=== PATIENT | female | born 1940 | race Caucasian/White ===

== ENCOUNTER 2022-04-05 05:26 | Inpatient (IN) | payer MEDICARE, OTHER ==
[2022-04-05 06:29] LABS: #Eosinphils 0.1 10x3/uL (0.0-0.5); #Monocytes 0.5 10x3/uL (0.0-1.1); #Neutrophils 7.3 10x3/uL (1.5-8.4); %Basophils 0.3 % (0.0-2.0); %Eosinophils 0.9 % (0.0-6.0); %Lymphocytes 10.5 % (18.0-47.0); %Monocytes 5.4 % (0.0-10.0); %Neutrophils 82.6 % (40.0-75.0); Hemoglobin 10.6 g/dL (12.0-15.5); Mean Corpuscular HGB CONC 31.4 g/dL (32.0-36.0); Mean Corpuscular Volume 92.3 fl (81.6-98.3); Mean Platelet Volume 8.8 fl (7.4-10.4); Platelet Count 202 10x3/uL (150-450); RBC Distribution Width 13.5 % (11.5-14.5); Red Blood Cell (RBC) Count 3.66 10x6/uL (3.90-5.03); White Blood Cell (WBC) Count 8.8 10x3/uL (3.5-10.5)
[2022-04-05 06:41] LABS: ALT (SGPT) 20 U/L (8-55); AST (SGOT) 25 U/L (5-34); Albumin 3.9 g/dL (3.4-4.8); Alkaline Phosphatase 87 U/L (40-110); Anion Gap 15 mmol/L (10-20); BUN (Urea Nitrogen) 29 mg/dL (9.8-20.1); Bilirubin, Total 0.5 mg/dL (0.2-1.2); Calc. Creatinine Clearance 0 mL/min (70-130); Calcium 9.4 mg/dL (7.8-10.44); Carbon Dioxide 20 mmol/L (23-31); Chloride 102 mmol/L (98-107); Estimated GFR 65; Globulin 3.2 g/dL (2.4-3.5); Glucose 145 mg/dL (83-110); Potassium 5.8 mmol/L (3.5-5.1); Protein, Total 7.1 g/dL (5.8-8.1); Sodium 131 mmol/L (136-145)
[2022-04-05] MEDS ORDERED: Furosemide 40 MG/4 ML VIAL ONE ×2 (08:50→10:58)
[2022-04-05] MEDS ORDERED: Nitroglycerin 2% Ointment 1 INCH/1 GM Packet ONE (08:50)
[2022-04-05] MEDS ORDERED: Nitroglycerin 0.4 MG TAB 1 EACH ONE (08:50)
[2022-04-05 09:21] LABS: Actual Bicarbonate (HCO3v) 12 mEq/L (22-28); Base Excess -16.4 mEq/L (-2.0 to +3.0); Calcium, Ionized (venous) 0.74 mmol/L (1.16-1.32); Chloride (VBG) 124 mmol/L (98-106); Puncture Site Other Site; RapidComm Collect By LAB TECH
[2022-04-05] MEDS ORDERED: Insulin Regular 300 UNITS/3 ML VIAL SC PRN (10:18)
[2022-04-05] MEDS ORDERED: Dextrose 50% Abboject 50 ML SYRINGE SLOW IVP PRN ×3 (10:18→16:39)
[2022-04-05] MEDS ORDERED: Dextrose 5% in Water 1,000 ML IV PRN (10:18)
[2022-04-05 11:16] LABS: Magnesium 2.1 mg/dL (1.6-2.6); Phosphorus 3.3 mg/dL (2.3-4.7)
[2022-04-05] MEDS ORDERED: Iopamidol 370 76% 100 ML VIAL ONE (11:28)
[2022-04-05 12:26] LABS: Anion Gap 16 mmol/L (10-20); BUN (Urea Nitrogen) 32 mg/dL (9.8-20.1); Calc. Creatinine Clearance 0 mL/min (70-130); Calcium 9.4 mg/dL (7.8-10.44); Carbon Dioxide 18 mmol/L (23-31); Chloride 100 mmol/L (98-107); Estimated GFR 58; Glucose 170 mg/dL (83-110); Sodium 128 mmol/L (136-145)
[2022-04-05] MEDS ORDERED: Furosemide 40 MG/4 ML VIAL SLOW IVP SCH ×2 (14:00→21:00)
[2022-04-05 14:40] LABS: Free T4 (Free Thyroxine) 1.05 ng/dL (0.70-1.48)
[2022-04-05 14:43] LABS: CKMB 4.6 ng/mL (0-6.6)
[2022-04-05 14:52] LABS: Actual Bicarbonate (HCO3a) 24.5 mEq/L (22-28); CO2 Tension 49.2 mmHg (35.0-45.0); Calcium, Ionized (arterial) 1.23 mmol/L (1.12-1.30); Carboxyhemoglobin (COHb) 0.2 gm% (0.0-3.0); Hemoglobin (Hb) 11.3 g/dL (12.0-16.0); O2 Tension (PaO2), arterial 109.7 mmHg (> 60.0); Potassium - ABG Lab 5.5 mmol/L (3.70-5.30); Puncture Site LBA; pH, Arterial 7.32 (7.35-7.45)
[2022-04-05] MEDS ORDERED: Calcium Gluc 4.6 MEQ/10 ML (100 MG/ML) SLOW IVP ONE (15:26)
[2022-04-05 15:27] LABS: Actual Bicarbonate (HCO3a) 22.8 mEq/L (22-28); Base Excess (BEa) -2.5 mEq/L (-2.0 to +3.0); CO2 Tension 41.5 mmHg (35.0-45.0); Calcium, Ionized (arterial) 1.08 mmol/L (1.12-1.30); Carboxyhemoglobin (COHb) 2.6 gm% (0.0-3.0); Hemoglobin (Hb) 12.2 g/dL (12.0-16.0); O2 Tension (PaO2), arterial 61.9 mmHg (> 60.0); Potassium - ABG Lab 6.1 mmol/L (3.70-5.30); Puncture Site Other Site; RapidComm Collect By LAB TECH; pH, Arterial 7.36 (7.35-7.45)
[2022-04-05 15:30] LABS: ALV-art Gradient 171.425 mmHg (0-20)
[2022-04-05] MEDS ORDERED: Insulin Regular 300 UNITS/3 ML VIAL IVP SCH ×2 (15:30→16:45)
[2022-04-05 15:49] LABS: Anion Gap 14 mmol/L (10-20); BUN (Urea Nitrogen) 33 mg/dL (9.8-20.1); Calc. Creatinine Clearance 65 mL/min (70-130); Calcium 9.5 mg/dL (7.8-10.44); Carbon Dioxide 21 mmol/L (23-31); Chloride 100 mmol/L (98-107); Estimated GFR 58; Glucose 150 mg/dL (83-110); Magnesium 2.1 mg/dL (1.6-2.6); Potassium 6.3 mmol/L (3.5-5.1); Sodium 129 mmol/L (136-145)
[2022-04-05] MEDS ORDERED: Calcium Gluc 4.6 MEQ/10 ML (100 MG/ML) SLOW IVP SCH (16:38)
[2022-04-05 17:49] LABS: Potassium 5.4 mmol/L (3.5-5.1)
[2022-04-05 18:30] LABS: SARS-CoV-2 NAA Rapid Test Not Detected (NotDetected)
[2022-04-05] MEDS ORDERED: Melatonin 3 MG TAB PO PRN (19:06)
[2022-04-05] MEDS: Aspirin 81 mg Enteric Coated Tablet PO SCH (20:35)
[2022-04-05] MEDS: Atorvastatin Calcium 40 MG TAB PO SCH (20:36)
[2022-04-05] MEDS: Heparin 5,000 UNITS/ML VIAL SC SCH (20:36)
[2022-04-05 20:51] LABS: Anion Gap 14 mmol/L (10-20); BUN (Urea Nitrogen) 33 mg/dL (9.8-20.1); Calc. Creatinine Clearance 60 mL/min (70-130); Calcium 9.3 mg/dL (7.8-10.44); Carbon Dioxide 23 mmol/L (23-31); Chloride 97 mmol/L (98-107); Estimated GFR 54; Glucose 181 mg/dL (83-110); Sodium 129 mmol/L (136-145)
[2022-04-05 21:24] LABS: CKMB 4.8 ng/mL (0-6.6)
[2022-04-06 02:58] LABS: #Monocytes 0.7 10x3/uL (0.0-1.1); #Neutrophils 7.8 10x3/uL (1.5-8.4); %Basophils 0.1 % (0.0-2.0); %Lymphocytes 6.5 % (18.0-47.0); %Monocytes 7.7 % (0.0-10.0); %Neutrophils 85.3 % (40.0-75.0); Hemoglobin 9.7 g/dL (12.0-15.5); Mean Corpuscular HGB CONC 32.6 g/dL (32.0-36.0); Mean Corpuscular Hemoglobin 29.3 pg (27.0-33.0); Mean Platelet Volume 9.2 fl (7.4-10.4); Platelet Count 205 10x3/uL (150-450); RBC Distribution Width 13.3 % (11.5-14.5); Red Blood Cell (RBC) Count 3.31 10x6/uL (3.90-5.03); White Blood Cell (WBC) Count 9.1 10x3/uL (3.5-10.5)
[2022-04-06 03:23] LABS: ALT (SGPT) 17 U/L (8-55); AST (SGOT) 27 U/L (5-34); Albumin 3.4 g/dL (3.4-4.8); Alkaline Phosphatase 77 U/L (40-110); Anion Gap 14 mmol/L (10-20); BUN (Urea Nitrogen) 36 mg/dL (9.8-20.1); Bilirubin, Total 0.4 mg/dL (0.2-1.2); Calc. Creatinine Clearance 56 mL/min (70-130); Calcium 9.3 mg/dL (7.8-10.44); Carbon Dioxide 23 mmol/L (23-31); Chloride 100 mmol/L (98-107); Estimated GFR 49; Globulin 2.8 g/dL (2.4-3.5); Glucose 167 mg/dL (83-110); Potassium 5.2 mmol/L (3.5-5.1); Protein, Total 6.2 g/dL (5.8-8.1); Sodium 132 mmol/L (136-145)
[2022-04-06] MEDS: Furosemide 40 MG/4 ML VIAL SLOW IVP SCH ×2 (06:07→14:10)
[2022-04-06 08:51] LABS: CKMB 3.3 ng/mL (0-6.6)
[2022-04-06] MEDS: Heparin 5,000 UNITS/ML VIAL SC SCH ×2 (08:54→20:27)
[2022-04-06] MEDS: Stress 600 With Zinc 1 TAB PO SCH (08:54)
[2022-04-06] MEDS: Methimazole 5 MG TAB PO SCH (09:33)
[2022-04-06] MEDS: Nystatin Powder 15 GM BOT TOP PRN ×2 (14:17→20:43)
[2022-04-06] MEDS: Aspirin 81 mg Enteric Coated Tablet PO SCH (20:27)
[2022-04-06] MEDS: Atorvastatin Calcium 40 MG TAB PO SCH (20:28)
[2022-04-06] MEDS ORDERED: Carvedilol 6.25 MG TAB PO SCH (21:00)
[2022-04-07 03:55] LABS: #Basophils 0.1 10x3/uL (0.0-0.2); #Eosinphils 0.1 10x3/uL (0.0-0.5); #Monocytes 0.8 10x3/uL (0.0-1.1); #Neutrophils 6.4 10x3/uL (1.5-8.4); %Basophils 0.5 % (0.0-2.0); %Eosinophils 1.5 % (0.0-6.0); %Lymphocytes 18.1 % (18.0-47.0); %Monocytes 9.2 % (0.0-10.0); %Neutrophils 70.5 % (40.0-75.0); Hemoglobin 9.9 g/dL (12.0-15.5); Mean Corpuscular HGB CONC 32.6 g/dL (32.0-36.0); Mean Corpuscular Hemoglobin 29.3 pg (27.0-33.0); Mean Corpuscular Volume 89.9 fl (81.6-98.3); Platelet Count 221 10x3/uL (150-450); RBC Distribution Width 13.5 % (11.5-14.5); Red Blood Cell (RBC) Count 3.38 10x6/uL (3.90-5.03); White Blood Cell (WBC) Count 9.1 10x3/uL (3.5-10.5)
[2022-04-07 04:10] LABS: Anion Gap 12 mmol/L (10-20); BUN (Urea Nitrogen) 42 mg/dL (9.8-20.1); Calc. Creatinine Clearance 61 mL/min (70-130); Calcium 9.1 mg/dL (7.8-10.44); Carbon Dioxide 29 mmol/L (23-31); Chloride 99 mmol/L (98-107); Estimated GFR 53; Glucose 100 mg/dL (83-110); Potassium 4.5 mmol/L (3.5-5.1); Sodium 135 mmol/L (136-145)
[2022-04-07] MEDS: Furosemide 40 MG/4 ML VIAL SLOW IVP SCH (05:49)
[2022-04-07] MEDS: Hydroxychloroquine Sulfate 200 MG TAB PO SCH (08:07)
[2022-04-07] MEDS: Carvedilol 6.25 MG TAB PO SCH ×2 (08:07→21:32)
[2022-04-07] MEDS: Stress 600 With Zinc 1 TAB PO SCH (08:08)
[2022-04-07] MEDS: Methimazole 5 MG TAB PO SCH (08:09)
[2022-04-07] MEDS: Heparin 5,000 UNITS/ML VIAL SC SCH ×2 (08:09→21:32)
[2022-04-07] MEDS ORDERED: Losartan Potassium 50 MG TAB PO SCH (09:00)
[2022-04-07] MEDS: Lantus 1000 UNITS/10 ML VIAL SC SCH (09:12)
[2022-04-07] MEDS ORDERED: Sodium Bicarbonate 2.5 MEQ/5 ML VIAL ONE (13:07)
[2022-04-07] MEDS: HYDROcodone/Acetaminophen 5/325 mg Tablet PO PRN (16:05)
[2022-04-07] MEDS ORDERED: Amlodipine 5 MG TAB PO SCH (17:00)
[2022-04-07] MEDS: Aspirin 81 mg Enteric Coated Tablet PO SCH (20:37)
[2022-04-07] MEDS: Atorvastatin Calcium 40 MG TAB PO SCH (21:32)
[2022-04-08] MEDS: HYDROcodone/Acetaminophen 5/325 mg Tablet PO PRN ×3 (02:42→18:10)
[2022-04-08] MEDS: Heparin 5,000 UNITS/ML VIAL SC SCH ×2 (08:22→20:05)
[2022-04-08] MEDS: Carvedilol 6.25 MG TAB PO SCH ×2 (08:23→20:04)
[2022-04-08] MEDS: Stress 600 With Zinc 1 TAB PO SCH (08:23)
[2022-04-08] MEDS: Methimazole 5 MG TAB PO SCH (08:23)
[2022-04-08] MEDS: Hydroxychloroquine Sulfate 200 MG TAB PO SCH (08:23)
[2022-04-08] MEDS: Lantus 1000 UNITS/10 ML VIAL SC SCH (08:24)
[2022-04-08 08:47] LABS: Hemoglobin 10.8 g/dL (12.0-15.5); Mean Corpuscular HGB CONC 31.6 g/dL (32.0-36.0); Mean Corpuscular Hemoglobin 28.7 pg (27.0-33.0); Mean Platelet Volume 8.7 fl (7.4-10.4); Platelet Count 215 10x3/uL (150-450); RBC Distribution Width 13.2 % (11.5-14.5); Red Blood Cell (RBC) Count 3.76 10x6/uL (3.90-5.03); White Blood Cell (WBC) Count 8.6 10x3/uL (3.5-10.5)
[2022-04-08 08:56] LABS: Anion Gap 12 mmol/L (10-20); BUN (Urea Nitrogen) 34 mg/dL (9.8-20.1); Calc. Creatinine Clearance 63 mL/min (70-130); Calcium 8.9 mg/dL (7.8-10.44); Carbon Dioxide 29 mmol/L (23-31); Chloride 97 mmol/L (98-107); Estimated GFR 57; Glucose 116 mg/dL (83-110); Sodium 134 mmol/L (136-145)
[2022-04-08] MEDS ORDERED: Furosemide 40 MG/4 ML VIAL SLOW IVP SCH (09:00)
[2022-04-08] MEDS: Senokot S 8.6-50 MG TAB PO PRN (14:09)
[2022-04-08] MEDS: Aspirin 81 mg Enteric Coated Tablet PO SCH (20:04)
[2022-04-08] MEDS: Atorvastatin Calcium 40 MG TAB PO SCH (20:05)
[2022-04-09] MEDS: HYDROcodone/Acetaminophen 5/325 mg Tablet PO PRN ×3 (02:23→21:14)
[2022-04-09] MEDS ORDERED: Furosemide 40 MG TAB PO SCH (07:30)
[2022-04-09] MEDS: Methimazole 5 MG TAB PO SCH (07:48)
[2022-04-09] MEDS: Stress 600 With Zinc 1 TAB PO SCH (07:49)
[2022-04-09] MEDS: Hydroxychloroquine Sulfate 200 MG TAB PO SCH (07:49)
[2022-04-09] MEDS: Lantus 1000 UNITS/10 ML VIAL SC SCH (07:50)
[2022-04-09] MEDS: Heparin 5,000 UNITS/ML VIAL SC SCH (07:50)
[2022-04-09] MEDS: Carvedilol 6.25 MG TAB PO SCH ×2 (07:55→21:15)
[2022-04-09 09:17] LABS: Anion Gap 13 mmol/L (10-20); BUN (Urea Nitrogen) 44 mg/dL (9.8-20.1); Calc. Creatinine Clearance 52 mL/min (70-130); Calcium 8.8 mg/dL (7.8-10.44); Carbon Dioxide 28 mmol/L (23-31); Chloride 94 mmol/L (98-107); Estimated GFR 43; Glucose 117 mg/dL (83-110); Potassium 3.8 mmol/L (3.5-5.1); Sodium 131 mmol/L (136-145)
[2022-04-09] MEDS: Aspirin 81 mg Enteric Coated Tablet PO SCH (21:15)
[2022-04-09] MEDS: Atorvastatin Calcium 40 MG TAB PO SCH (21:15)
[2022-04-10 06:04] LABS: #Eosinphils 0.4 10x3/uL (0.0-0.5); #Monocytes 0.9 10x3/uL (0.0-1.1); #Neutrophils 6.6 10x3/uL (1.5-8.4); %Basophils 0.3 % (0.0-2.0); %Lymphocytes 12.1 % (18.0-47.0); %Monocytes 10.3 % (0.0-10.0); %Neutrophils 73.1 % (40.0-75.0); Hemoglobin 10.9 g/dL (12.0-15.5); Mean Corpuscular HGB CONC 33.4 g/dL (32.0-36.0); Mean Corpuscular Hemoglobin 29.5 pg (27.0-33.0); Mean Corpuscular Volume 88.1 fl (81.6-98.3); Mean Platelet Volume 8.9 fl (7.4-10.4); Platelet Count 216 10x3/uL (150-450)
[2022-04-10 06:30] LABS: PTT 28.6 sec (22.0-33.0); Prothrombin Time 11.1 sec (9.5-12.1)
[2022-04-10 06:32] LABS: Anion Gap 16 mmol/L (10-20); BUN (Urea Nitrogen) 43 mg/dL (9.8-20.1); Calc. Creatinine Clearance 52 mL/min (70-130); Calcium 8.8 mg/dL (7.8-10.44); Carbon Dioxide 23 mmol/L (23-31); Chloride 97 mmol/L (98-107); Estimated GFR 44; Glucose 119 mg/dL (83-110); Sodium 132 mmol/L (136-145)
[2022-04-10] MEDS ORDERED: CEFAZOLIN 1 GM VIAL ONE ×2 (06:55→08:54)
[2022-04-10] MEDS ORDERED: Gentamicin 80 MG/2 ML VIAL ONE (06:55)
[2022-04-10] MEDS ORDERED: Vancomycin 1.5 GRAM/300 ML BAG IVPB SCH (07:00)
[2022-04-10] MEDS ORDERED: Lidocaine 1% 20 ML MDV ONE (07:44)
[2022-04-10] MEDS ORDERED: Ketamine 50 MG/ML (10ML VIAL) ONE (08:35)
[2022-04-10] MEDS ORDERED: Lidocaine 2% MPF 10 ML AMP (For Epidural Use) ONE (08:36)
[2022-04-10] MEDS ORDERED: Propofol 1,000 MG/100 ML VIAL IV ONE (08:36)
[2022-04-10] MEDS ORDERED: ePHEDrine Sulfate 50 MG/10 ML VIAL ONE (08:42)
[2022-04-10] MEDS ORDERED: PHENYLEPHRINE-NS 100 MCG/ML 10 ML SYRINGE ONE (08:43)
[2022-04-10] MEDS ORDERED: Ondansetron PF 4 MG/2 ML Vial ONE (08:59)
[2022-04-10] MEDS: Carvedilol 6.25 MG TAB PO SCH ×2 (11:01→21:09)
[2022-04-10] MEDS: Hydroxychloroquine Sulfate 200 MG TAB PO SCH (11:02)
[2022-04-10] MEDS: Stress 600 With Zinc 1 TAB PO SCH (11:02)
[2022-04-10] MEDS: Lantus 1000 UNITS/10 ML VIAL SC SCH (11:02)
[2022-04-10] MEDS: Methimazole 5 MG TAB PO SCH (11:02)
[2022-04-10] MEDS: Senokot S 8.6-50 MG TAB PO PRN ×2 (11:29→22:10)
[2022-04-10] MEDS ORDERED: Iopamidol 300 61% 50 ML VIAL FS ONE (13:35)
[2022-04-10] MEDS: HYDROcodone/Acetaminophen 5/325 mg Tablet PO PRN ×2 (14:13→21:07)
[2022-04-10] MEDS: Aspirin 81 mg Enteric Coated Tablet PO SCH (21:06)
[2022-04-10] MEDS: Atorvastatin Calcium 40 MG TAB PO SCH (21:09)
[2022-04-11 04:23] LABS: #Neutrophils 5.2 10x3/uL (1.5-8.4); %Basophils 0.5 % (0.0-2.0); %Eosinophils 6.5 % (0.0-6.0); %Lymphocytes 16.2 % (18.0-47.0); %Monocytes 10.8 % (0.0-10.0); %Neutrophils 65.6 % (40.0-75.0); Mean Corpuscular HGB CONC 32.8 g/dL (32.0-36.0); Mean Corpuscular Hemoglobin 29.1 pg (27.0-33.0); Mean Corpuscular Volume 88.7 fl (81.6-98.3); Mean Platelet Volume 8.8 fl (7.4-10.4); Platelet Count 214 10x3/uL (150-450); RBC Distribution Width 13.2 % (11.5-14.5); Red Blood Cell (RBC) Count 3.44 10x6/uL (3.90-5.03)
[2022-04-11 04:24] LABS: #Eosinphils 0.5 10x3/uL (0.0-0.5); #Monocytes 0.9 10x3/uL (0.0-1.1)
[2022-04-11 04:59] LABS: Anion Gap 15 mmol/L (10-20); BUN (Urea Nitrogen) 57 mg/dL (9.8-20.1); Calc. Creatinine Clearance 47 mL/min (70-130); Calcium 8.5 mg/dL (7.8-10.44); Carbon Dioxide 23 mmol/L (23-31); Chloride 98 mmol/L (98-107); Estimated GFR 39; Glucose 137 mg/dL (83-110); Magnesium 2.2 mg/dL (1.6-2.6); Potassium 4.4 mmol/L (3.5-5.1); Sodium 132 mmol/L (136-145)
[2022-04-11] MEDS ORDERED: Sodium Chloride 0.9% 1,000 ML IV SCH (07:30)
[2022-04-11] MEDS: Methimazole 5 MG TAB PO SCH (08:33)
[2022-04-11] MEDS: Hydroxychloroquine Sulfate 200 MG TAB PO SCH (08:33)
[2022-04-11] MEDS: Stress 600 With Zinc 1 TAB PO SCH (08:34)
[2022-04-11] MEDS: Lantus 1000 UNITS/10 ML VIAL SC SCH (08:34)
[2022-04-11] MEDS: Carvedilol 6.25 MG TAB PO SCH ×2 (08:35→20:52)
[2022-04-11] MEDS: Insulin Regular 300 UNITS/3 ML VIAL SC PRN (11:56)
[2022-04-11] MEDS: diphenhydrAMINE 30 GM TUBE TOP PRN (20:50)
[2022-04-11] MEDS: Aspirin 81 mg Enteric Coated Tablet PO SCH (20:52)
[2022-04-11] MEDS: Atorvastatin Calcium 40 MG TAB PO SCH (20:52)
[2022-04-11] MEDS: Heparin 5,000 UNITS/ML VIAL SC SCH (20:53)
[2022-04-11] MEDS: Acetaminophen 325 MG TAB PO PRN (22:13)
[2022-04-11] MEDS: Senokot S 8.6-50 MG TAB PO PRN (22:14)
[2022-04-12] MEDS ORDERED: Ondansetron PF 4 MG/2 ML Vial IVP SCH (00:45)
[2022-04-12 01:11] LABS: SARS-CoV-2 NAA Rapid Test Not Detected (NotDetected)
[2022-04-12 01:45] LABS: #Eosinphils 0.5 10x3/uL (0.0-0.5); #Monocytes 0.9 10x3/uL (0.0-1.1); #Neutrophils 5.3 10x3/uL (1.5-8.4); %Basophils 0.5 % (0.0-2.0); %Eosinophils 6.5 % (0.0-6.0); %Lymphocytes 14.5 % (18.0-47.0); %Monocytes 10.8 % (0.0-10.0); %Neutrophils 67.3 % (40.0-75.0); Hemoglobin 9.8 g/dL (12.0-15.5); Mean Corpuscular HGB CONC 33.1 g/dL (32.0-36.0); Mean Corpuscular Hemoglobin 29.6 pg (27.0-33.0); Mean Corpuscular Volume 89.4 fl (81.6-98.3); Mean Platelet Volume 8.8 fl (7.4-10.4); Platelet Count 215 10x3/uL (150-450); RBC Distribution Width 12.9 % (11.5-14.5); Red Blood Cell (RBC) Count 3.31 10x6/uL (3.90-5.03); White Blood Cell (WBC) Count 7.9 10x3/uL (3.5-10.5)
[2022-04-12 01:57] LABS: Anion Gap 14 mmol/L (10-20); BUN (Urea Nitrogen) 57 mg/dL (9.8-20.1); Calc. Creatinine Clearance 56 mL/min (70-130); Calcium 8.4 mg/dL (7.8-10.44); Carbon Dioxide 21 mmol/L (23-31); Chloride 99 mmol/L (98-107); Estimated GFR 49; Glucose 121 mg/dL (83-110); Magnesium 2.2 mg/dL (1.6-2.6); Potassium 4.6 mmol/L (3.5-5.1); Sodium 129 mmol/L (136-145)
[2022-04-12 02:01] LABS: Troponin I 0.074 ng/mL (< 0.028)
[2022-04-12] MEDS: Lantus 1000 UNITS/10 ML VIAL SC SCH (08:42)
[2022-04-12] MEDS: Carvedilol 6.25 MG TAB PO SCH ×2 (08:43→21:46)
[2022-04-12] MEDS: Heparin 5,000 UNITS/ML VIAL SC SCH ×2 (08:43→21:46)
[2022-04-12] MEDS: Methimazole 5 MG TAB PO SCH (08:44)
[2022-04-12] MEDS: Hydroxychloroquine Sulfate 200 MG TAB PO SCH (08:44)
[2022-04-12] MEDS: Stress 600 With Zinc 1 TAB PO SCH (08:44)
[2022-04-12] MEDS: Nystatin Powder 15 GM BOT TOP PRN (11:02)
[2022-04-12] MEDS: diphenhydrAMINE 30 GM TUBE TOP PRN (11:05)
[2022-04-12] MEDS: Insulin Regular 300 UNITS/3 ML VIAL SC PRN (11:54)
[2022-04-12] MEDS ORDERED: Ondansetron PF 4 MG/2 ML Vial IVP PRN (14:09)
[2022-04-12] MEDS ORDERED: Promethazine HCl 12.5 MG in Sodium Chloride 0.9% 50 ML IVPB PRN (15:15)
[2022-04-12] MEDS: Scopolamine 1.5 mg/72 hour Patch TD SCH (15:33)
[2022-04-12] MEDS: Dextrose 50% Abboject 50 ML SYRINGE SLOW IVP PRN ×2 (18:40→20:17)
[2022-04-12] MEDS: Aspirin 81 mg Enteric Coated Tablet PO SCH (21:45)
[2022-04-12] MEDS: Atorvastatin Calcium 40 MG TAB PO SCH (21:46)
[2022-04-12] MEDS: Acetaminophen 325 MG TAB PO PRN (21:47)
[2022-04-13 03:59] LABS: #Eosinphils 0.4 10x3/uL (0.0-0.5); #Monocytes 0.7 10x3/uL (0.0-1.1); #Neutrophils 8.7 10x3/uL (1.5-8.4); %Basophils 0.3 % (0.0-2.0); %Eosinophils 3.9 % (0.0-6.0); %Lymphocytes 9.2 % (18.0-47.0); %Monocytes 6.8 % (0.0-10.0); %Neutrophils 79.4 % (40.0-75.0); Hemoglobin 10.2 g/dL (12.0-15.5); Mean Corpuscular HGB CONC 33.2 g/dL (32.0-36.0); Mean Corpuscular Hemoglobin 29.7 pg (27.0-33.0); Mean Corpuscular Volume 89.2 fl (81.6-98.3); Mean Platelet Volume 8.6 fl (7.4-10.4); Platelet Count 229 10x3/uL (150-450); RBC Distribution Width 13.2 % (11.5-14.5); Red Blood Cell (RBC) Count 3.44 10x6/uL (3.90-5.03); White Blood Cell (WBC) Count 10.9 10x3/uL (3.5-10.5)
[2022-04-13 04:10] LABS: Anion Gap 13 mmol/L (10-20); BUN (Urea Nitrogen) 53 mg/dL (9.8-20.1); Calc. Creatinine Clearance 49 mL/min (70-130); Calcium 8.7 mg/dL (7.8-10.44); Carbon Dioxide 21 mmol/L (23-31); Chloride 101 mmol/L (98-107); Estimated GFR 41; Glucose 128 mg/dL (83-110); Potassium 4.5 mmol/L (3.5-5.1); Sodium 130 mmol/L (136-145)
[2022-04-13] MEDS: Heparin 5,000 UNITS/ML VIAL SC SCH (08:34)
[2022-04-13] MEDS: Methimazole 5 MG TAB PO SCH (08:34)
[2022-04-13] MEDS: Carvedilol 6.25 MG TAB PO SCH (08:34)
[2022-04-13] MEDS: Hydroxychloroquine Sulfate 200 MG TAB PO SCH (08:34)
[2022-04-13] MEDS: Stress 600 With Zinc 1 TAB PO SCH (08:34)
[2022-04-13] MEDS: Lantus 1000 UNITS/10 ML VIAL SC SCH (08:35)
[2022-04-13] MEDS: Albumin 25% 25 GM/100 ML BOT IVPB SCH (15:55)
[2022-04-13] MEDS ORDERED: Furosemide 20 MG/2 ML VIAL SLOW IVP SCH (17:00)
[2022-04-13] MEDS: Atorvastatin Calcium 40 MG TAB PO SCH (21:49)
[2022-04-13] MEDS: Aspirin 81 mg Enteric Coated Tablet PO SCH (21:49)
[2022-04-13] MEDS: Carvedilol 3.125 MG TAB PO SCH (21:49)
[2022-04-14] MEDS ORDERED: diphenhydrAMINE 50 MG/ML VIAL IVP SCH (04:15)
[2022-04-14 05:02] LABS: #Eosinphils 0.6 10x3/uL (0.0-0.5); #Monocytes 0.7 10x3/uL (0.0-1.1); #Neutrophils 4.9 10x3/uL (1.5-8.4); %Basophils 0.1 % (0.0-2.0); %Eosinophils 8.1 % (0.0-6.0); %Lymphocytes 16.2 % (18.0-47.0); %Monocytes 9.5 % (0.0-10.0); %Neutrophils 65.6 % (40.0-75.0); Hemoglobin 10.1 g/dL (12.0-15.5); Mean Corpuscular HGB CONC 33.7 g/dL (32.0-36.0); Mean Platelet Volume 9.2 fl (7.4-10.4); Platelet Count 230 10x3/uL (150-450); Red Blood Cell (RBC) Count 3.37 10x6/uL (3.90-5.03); White Blood Cell (WBC) Count 7.5 10x3/uL (3.5-10.5)
[2022-04-14 05:04] LABS: Anion Gap 15 mmol/L (10-20); BUN (Urea Nitrogen) 49 mg/dL (9.8-20.1); Calc. Creatinine Clearance 57 mL/min (70-130); Calcium 8.7 mg/dL (7.8-10.44); Carbon Dioxide 21 mmol/L (23-31); Chloride 98 mmol/L (98-107); Estimated GFR 49; Glucose 64 mg/dL (83-110); Potassium 4.5 mmol/L (3.5-5.1); Sodium 129 mmol/L (136-145)
[2022-04-14] MEDS: Dextrose 50% Abboject 50 ML SYRINGE SLOW IVP PRN (05:14)
[2022-04-14] MEDS ORDERED: Gentamicin 80 MG/2 ML VIAL ONE (06:47)
[2022-04-14] MEDS ORDERED: CEFAZOLIN 1 GM VIAL ONE (06:47)
[2022-04-14] MEDS ORDERED: Lidocaine 1% 20 ML MDV ONE (06:47)
[2022-04-14] MEDS ORDERED: Vancomycin 1.5 GRAM/300 ML BAG IVPB SCH (07:00)
[2022-04-14] MEDS ORDERED: PROPOFOL 200 MG/20 ML VIAL ONE (09:00)
[2022-04-14] MEDS ORDERED: Ondansetron PF 4 MG/2 ML Vial ONE (09:00)
[2022-04-14] MEDS ORDERED: Lidocaine 1% (PF) 30 ML VIAL ONE (09:00)
[2022-04-14] MEDS ORDERED: Fentanyl 100 MCG/2 ML VIAL ONE (09:01)
[2022-04-14] MEDS ORDERED: NOREPINEPHRINE 8 MG/250 ML-D5W 250 ML ONE (09:08)
[2022-04-14] MEDS ORDERED: Iopamidol 300 61% 50 ML VIAL FS ONE (12:28)
[2022-04-14] MEDS: diphenhydrAMINE 25 MG CAP PO PRN (13:34)
[2022-04-14] MEDS: Methimazole 5 MG TAB PO SCH (15:15)
[2022-04-14] MEDS: Hydroxychloroquine Sulfate 200 MG TAB PO SCH (15:15)
[2022-04-14] MEDS: Carvedilol 3.125 MG TAB PO SCH ×2 (15:15→20:44)
[2022-04-14] MEDS: Lantus 1000 UNITS/10 ML VIAL SC SCH (15:15)
[2022-04-14] MEDS: Stress 600 With Zinc 1 TAB PO SCH (15:16)
[2022-04-14] MEDS: Acetaminophen 325 MG TAB PO PRN (16:12)
[2022-04-14] MEDS: Albumin 25% 25 GM/100 ML BOT IVPB SCH (17:12)
[2022-04-14] MEDS: Atorvastatin Calcium 40 MG TAB PO SCH (20:43)
[2022-04-14] MEDS: Aspirin 81 mg Enteric Coated Tablet PO SCH (20:43)
[2022-04-15 04:45] LABS: #Eosinphils 0.6 10x3/uL (0.0-0.5); #Monocytes 0.8 10x3/uL (0.0-1.1); %Basophils 0.2 % (0.0-2.0); %Eosinophils 7.3 % (0.0-6.0); %Lymphocytes 13.3 % (18.0-47.0); %Monocytes 8.8 % (0.0-10.0); %Neutrophils 69.8 % (40.0-75.0); Mean Corpuscular HGB CONC 32.3 g/dL (32.0-36.0); Mean Corpuscular Hemoglobin 29.1 pg (27.0-33.0); Mean Corpuscular Volume 90.1 fl (81.6-98.3); Platelet Count 223 10x3/uL (150-450); Red Blood Cell (RBC) Count 3.44 10x6/uL (3.90-5.03); White Blood Cell (WBC) Count 8.5 10x3/uL (3.5-10.5)
[2022-04-15 05:05] LABS: Anion Gap 14 mmol/L (10-20); BUN (Urea Nitrogen) 49 mg/dL (9.8-20.1); Calc. Creatinine Clearance 57 mL/min (70-130); Calcium 8.5 mg/dL (7.8-10.44); Carbon Dioxide 20 mmol/L (23-31); Chloride 99 mmol/L (98-107); Estimated GFR 49; Glucose 79 mg/dL (83-110); Potassium 4.7 mmol/L (3.5-5.1); Sodium 128 mmol/L (136-145)
[2022-04-15] MEDS: Hydroxychloroquine Sulfate 200 MG TAB PO SCH (08:14)
[2022-04-15] MEDS: Acetaminophen 325 MG TAB PO PRN ×2 (08:14→22:01)
[2022-04-15] MEDS: Carvedilol 3.125 MG TAB PO SCH ×2 (08:15→21:45)
[2022-04-15] MEDS: Methimazole 5 MG TAB PO SCH (08:15)
[2022-04-15] MEDS: diphenhydrAMINE 25 MG CAP PO PRN ×2 (08:15→17:45)
[2022-04-15] MEDS: Stress 600 With Zinc 1 TAB PO SCH (08:15)
[2022-04-15] MEDS: Lantus 1000 UNITS/10 ML VIAL SC SCH (08:16)
[2022-04-15] MEDS: Scopolamine 1.5 mg/72 hour Patch TD SCH (17:24)
[2022-04-15] MEDS: Aspirin 81 mg Enteric Coated Tablet PO SCH (21:58)
[2022-04-15] MEDS: Atorvastatin Calcium 40 MG TAB PO SCH (21:58)
[2022-04-16] MEDS: Acetaminophen 325 MG TAB PO PRN (03:21)
[2022-04-16 05:13] LABS: #Eosinphils 0.8 10x3/uL (0.0-0.5); #Monocytes 0.9 10x3/uL (0.0-1.1); #Neutrophils 7.8 10x3/uL (1.5-8.4); %Basophils 0.1 % (0.0-2.0); %Eosinophils 7.2 % (0.0-6.0); %Lymphocytes 11.1 % (18.0-47.0); %Monocytes 8.2 % (0.0-10.0); %Neutrophils 72.8 % (40.0-75.0); Hemoglobin 9.8 g/dL (12.0-15.5); Mean Corpuscular HGB CONC 32.7 g/dL (32.0-36.0); Mean Corpuscular Hemoglobin 29.1 pg (27.0-33.0); Mean Platelet Volume 8.9 fl (7.4-10.4); Platelet Count 222 10x3/uL (150-450); RBC Distribution Width 12.9 % (11.5-14.5); Red Blood Cell (RBC) Count 3.37 10x6/uL (3.90-5.03); White Blood Cell (WBC) Count 10.8 10x3/uL (3.5-10.5)
[2022-04-16 05:28] LABS: Anion Gap 15 mmol/L (10-20); BUN (Urea Nitrogen) 47 mg/dL (9.8-20.1); Calc. Creatinine Clearance 68 mL/min (70-130); Calcium 8.4 mg/dL (7.8-10.44); Carbon Dioxide 19 mmol/L (23-31); Chloride 100 mmol/L (98-107); Estimated GFR 60; Glucose 84 mg/dL (83-110); Potassium 4.6 mmol/L (3.5-5.1); Sodium 129 mmol/L (136-145)
[2022-04-16] MEDS: Carvedilol 3.125 MG TAB PO SCH ×2 (09:34→20:33)
[2022-04-16] MEDS: Hydroxychloroquine Sulfate 200 MG TAB PO SCH (09:34)
[2022-04-16] MEDS: Stress 600 With Zinc 1 TAB PO SCH (09:34)
[2022-04-16] MEDS: Lantus 1000 UNITS/10 ML VIAL SC SCH (09:34)
[2022-04-16] MEDS: Methimazole 5 MG TAB PO SCH (10:55)
[2022-04-16] MEDS ORDERED: Ondansetron ODT 4 MG TAB PO PRN (16:38)
[2022-04-16] MEDS: diphenhydrAMINE 25 MG CAP PO PRN (19:10)
[2022-04-16] MEDS: Atorvastatin Calcium 40 MG TAB PO SCH (20:33)
[2022-04-16] MEDS: Aspirin 81 mg Enteric Coated Tablet PO SCH (20:34)
[2022-04-16] MEDS: Senokot S 8.6-50 MG TAB PO PRN (23:01)
[2022-04-17] MEDS: HYDROcodone/Acetaminophen 5/325 mg Tablet PO PRN (09:08)
[2022-04-17] MEDS: Hydroxychloroquine Sulfate 200 MG TAB PO SCH (09:09)
[2022-04-17] MEDS: Stress 600 With Zinc 1 TAB PO SCH (09:09)
[2022-04-17] MEDS: Methimazole 5 MG TAB PO SCH (09:09)
[2022-04-17] MEDS: Carvedilol 3.125 MG TAB PO SCH ×2 (09:10→20:57)
[2022-04-17] MEDS: Lantus 1000 UNITS/10 ML VIAL SC SCH (09:11)
[2022-04-17] MEDS: diphenhydrAMINE 25 MG CAP PO PRN ×2 (12:01→23:23)
[2022-04-17] MEDS: Hydrocortisone 1% Cream 30 GM TUBE TOP SCH ×2 (17:31→20:57)
[2022-04-17] MEDS: Aspirin 81 mg Enteric Coated Tablet PO SCH (20:56)
[2022-04-17] MEDS: Atorvastatin Calcium 40 MG TAB PO SCH (20:56)
[2022-04-17] MEDS: Senokot S 8.6-50 MG TAB PO SCH (20:57)
[2022-04-18] MEDS: Hydrocortisone 1% Cream 30 GM TUBE TOP SCH ×3 (09:00→22:46)
[2022-04-18] MEDS: Methimazole 5 MG TAB PO SCH (09:58)
[2022-04-18] MEDS: Carvedilol 3.125 MG TAB PO SCH ×2 (09:59→20:22)
[2022-04-18] MEDS: Stress 600 With Zinc 1 TAB PO SCH (09:59)
[2022-04-18] MEDS: Senokot S 8.6-50 MG TAB PO SCH ×2 (09:59→20:20)
[2022-04-18] MEDS: Hydroxychloroquine Sulfate 200 MG TAB PO SCH (10:00)
[2022-04-18] MEDS: diphenhydrAMINE 25 MG CAP PO PRN (10:14)
[2022-04-18] MEDS: Lantus 1000 UNITS/10 ML VIAL SC SCH (10:15)
[2022-04-18] MEDS ORDERED: Bisacodyl 10 MG SUPP PR SCH (13:30)
[2022-04-18] MEDS: Atorvastatin Calcium 40 MG TAB PO SCH (20:19)
[2022-04-18] MEDS: Aspirin 81 mg Enteric Coated Tablet PO SCH (20:20)
[2022-04-19 05:29] LABS: #Eosinphils 1.1 10x3/uL (0.0-0.5); #Monocytes 0.8 10x3/uL (0.0-1.1); #Neutrophils 7.8 10x3/uL (1.5-8.4); %Basophils 0.4 % (0.0-2.0); %Eosinophils 9.6 % (0.0-6.0); %Lymphocytes 13.4 % (18.0-47.0); %Neutrophils 68.5 % (40.0-75.0); Anion Gap 13 mmol/L (10-20); BUN (Urea Nitrogen) 28 mg/dL (9.8-20.1); Calc. Creatinine Clearance 87 mL/min (70-130); Calcium 8.4 mg/dL (7.8-10.44); Carbon Dioxide 19 mmol/L (23-31); Chloride 100 mmol/L (98-107); Estimated GFR 83; Glucose 75 mg/dL (83-110); Hemoglobin 8.9 g/dL (12.0-15.5); Mean Corpuscular HGB CONC 32.8 g/dL (32.0-36.0); Mean Corpuscular Hemoglobin 29.1 pg (27.0-33.0); Mean Corpuscular Volume 88.6 fl (81.6-98.3); Mean Platelet Volume 8.9 fl (7.4-10.4); Platelet Count 202 10x3/uL (150-450); Potassium 4.6 mmol/L (3.5-5.1); RBC Distribution Width 12.9 % (11.5-14.5); Red Blood Cell (RBC) Count 3.06 10x6/uL (3.90-5.03); Sodium 127 mmol/L (136-145); White Blood Cell (WBC) Count 11.3 10x3/uL (3.5-10.5)
[2022-04-19 05:34] VITALS: BMI 35.2
[2022-04-19] MEDS ORDERED: Polyethylene Glycol 3350 17 GM Packet PO SCH (09:00)
[2022-04-19] MEDS: Hydroxychloroquine Sulfate 200 MG TAB PO SCH (09:20)
[2022-04-19] MEDS: Senokot S 8.6-50 MG TAB PO SCH ×2 (09:21→23:46)
[2022-04-19] MEDS: Lantus 1000 UNITS/10 ML VIAL SC SCH (09:21)
[2022-04-19] MEDS: Methimazole 5 MG TAB PO SCH (09:22)
[2022-04-19] MEDS: Carvedilol 3.125 MG TAB PO SCH ×2 (09:23→23:47)
[2022-04-19] MEDS: Acetaminophen 325 MG TAB PO PRN (09:30)
[2022-04-19] MEDS: Stress 600 With Zinc 1 TAB PO SCH (09:33)
[2022-04-19] MEDS: Hydrocortisone 1% Cream 30 GM TUBE TOP SCH ×3 (09:45→23:46)
[2022-04-19] MEDS: Atorvastatin Calcium 40 MG TAB PO SCH (23:46)
[2022-04-19] MEDS: Aspirin 81 mg Enteric Coated Tablet PO SCH (23:46)
[2022-04-19] MEDS: Polyethylene Glycol 3350 17 GM Packet PO SCH (23:46)
[2022-04-20 05:35] LABS: #Basophils 0.1 10x3/uL (0.0-0.2); #Eosinphils 1.3 10x3/uL (0.0-0.5); #Monocytes 0.8 10x3/uL (0.0-1.1); #Neutrophils 7.1 10x3/uL (1.5-8.4); %Basophils 0.5 % (0.0-2.0); %Eosinophils 11.7 % (0.0-6.0); %Lymphocytes 15.1 % (18.0-47.0); %Monocytes 6.8 % (0.0-10.0); %Neutrophils 64.6 % (40.0-75.0); Hemoglobin 9.2 g/dL (12.0-15.5); Mean Corpuscular Hemoglobin 29.2 pg (27.0-33.0); Mean Corpuscular Volume 88.6 fl (81.6-98.3); Mean Platelet Volume 8.8 fl (7.4-10.4); Platelet Count 214 10x3/uL (150-450); RBC Distribution Width 12.9 % (11.5-14.5); Red Blood Cell (RBC) Count 3.15 10x6/uL (3.90-5.03)
[2022-04-20 05:46] LABS: Anion Gap 11 mmol/L (10-20); BUN (Urea Nitrogen) 24 mg/dL (9.8-20.1); Calc. Creatinine Clearance 85 mL/min (70-130); Calcium 8.9 mg/dL (7.8-10.44); Carbon Dioxide 22 mmol/L (23-31); Chloride 102 mmol/L (98-107); Estimated GFR 80; Glucose 64 mg/dL (83-110); Potassium 4.5 mmol/L (3.5-5.1); Sodium 130 mmol/L (136-145)
[2022-04-20] MEDS: Polyethylene Glycol 3350 17 GM Packet PO SCH ×2 (09:03→20:22)
[2022-04-20] MEDS: Methimazole 5 MG TAB PO SCH (09:04)
[2022-04-20] MEDS: Stress 600 With Zinc 1 TAB PO SCH (09:04)
[2022-04-20] MEDS: Hydroxychloroquine Sulfate 200 MG TAB PO SCH (09:05)
[2022-04-20] MEDS: Carvedilol 3.125 MG TAB PO SCH ×2 (09:06→20:23)
[2022-04-20] MEDS: Lantus 1000 UNITS/10 ML VIAL SC SCH (09:07)
[2022-04-20] MEDS: Hydrocortisone 1% Cream 30 GM TUBE TOP SCH ×3 (09:08→20:23)
[2022-04-20] MEDS: Senokot S 8.6-50 MG TAB PO SCH ×2 (09:09→20:22)
[2022-04-20] MEDS: Atorvastatin Calcium 40 MG TAB PO SCH (20:22)
[2022-04-20] MEDS: Acetaminophen 325 MG TAB PO PRN (20:22)
[2022-04-20] MEDS: Aspirin 81 mg Enteric Coated Tablet PO SCH (20:22)
[2022-04-21 06:05] LABS: Anion Gap 12 mmol/L (10-20); BUN (Urea Nitrogen) 22 mg/dL (9.8-20.1); Calc. Creatinine Clearance 86 mL/min (70-130); Calcium 8.5 mg/dL (7.8-10.44); Carbon Dioxide 21 mmol/L (23-31); Chloride 105 mmol/L (98-107); Estimated GFR 82; Potassium 4.5 mmol/L (3.5-5.1); Sodium 133 mmol/L (136-145)
[2022-04-21 06:12] LABS: Glucose 52 mg/dL (83-110)
[2022-04-21 06:18] LABS: #Basophils 0.1 10x3/uL (0.0-0.2); #Eosinphils 1.3 10x3/uL (0.0-0.5); #Monocytes 0.7 10x3/uL (0.0-1.1); #Neutrophils 5.4 10x3/uL (1.5-8.4); %Basophils 0.5 % (0.0-2.0); %Eosinophils 13.7 % (0.0-6.0); %Lymphocytes 19.8 % (18.0-47.0); %Monocytes 7.3 % (0.0-10.0); %Neutrophils 57.1 % (40.0-75.0); Hemoglobin 9.2 g/dL (12.0-15.5); Mean Corpuscular HGB CONC 33.3 g/dL (32.0-36.0); Mean Corpuscular Hemoglobin 29.5 pg (27.0-33.0); Mean Corpuscular Volume 88.5 fl (81.6-98.3); Mean Platelet Volume 8.6 fl (7.4-10.4); Platelet Count 198 10x3/uL (150-450); RBC Distribution Width 13.1 % (11.5-14.5); Red Blood Cell (RBC) Count 3.12 10x6/uL (3.90-5.03); White Blood Cell (WBC) Count 9.4 10x3/uL (3.5-10.5)
[2022-04-21] MEDS: Dextrose 50% Abboject 50 ML SYRINGE SLOW IVP PRN (06:21)
[2022-04-21] MEDS: Stress 600 With Zinc 1 TAB PO SCH (09:46)
[2022-04-21] MEDS: Polyethylene Glycol 3350 17 GM Packet PO SCH (09:47)
[2022-04-21] MEDS: Senokot S 8.6-50 MG TAB PO SCH (09:47)
[2022-04-21] MEDS: Hydroxychloroquine Sulfate 200 MG TAB PO SCH (09:48)
[2022-04-21] MEDS: Hydrocortisone 1% Cream 30 GM TUBE TOP SCH (09:48)
[2022-04-21] MEDS: Carvedilol 3.125 MG TAB PO SCH (09:49)
[2022-04-21] MEDS: Methimazole 5 MG TAB PO SCH (09:49)
[2022-04-21 11:05] VITALS: BP 126/58; TEMP 98.5
[2022-04-21] MEDS: Lantus 1000 UNITS/10 ML VIAL SC SCH (11:39)
== END 2022-04-21 11:30 | DRG 226 ==
LOC: CSHERS 05:26 → EDBD 05:26 → CSHIMCU 11:35 → CSHTELE 04-09 18:19 → CSHIMCU 04-10 10:19 → CSHTELE 04-15 18:11
PROVIDERS: ADMIT Internal Medicine; ATTEND Student in an Organized Health Care Education/Training Program
PROC: 5A09357 Assistance with Respiratory Ventilation, Less than 24 Consecutive Hours, Continuous Positive Airway Pressure (ICD-10-PCS; 2022-04-05)
PROC: 0W9B3ZZ Drainage of Left Pleural Cavity, Percutaneous Approach (ICD-10-PCS; principal; 2022-04-07)
PROC: 30233J1 Transfusion of Nonautologous Serum Albumin into Peripheral Vein, Percutaneous Approach (ICD-10-PCS; 2022-04-13)
PROC: 0JH609Z Insertion of Cardiac Resynchronization Defibrillator Pulse Generator into Chest Subcutaneous Tissue and Fascia, Open Approach (ICD-10-PCS; 2022-04-14)
PROC: 02HK3KZ Insertion of Defibrillator Lead into Right Ventricle, Percutaneous Approach (ICD-10-PCS; 2022-04-14)
PROC: 02HL3KZ Insertion of Defibrillator Lead into Left Ventricle, Percutaneous Approach (ICD-10-PCS; 2022-04-14)
DX: I11.0 Hypertensive heart disease with heart failure (principal); I21.A1 Myocardial infarction type 2; J96.01 Acute respiratory failure with hypoxia; I50.43 Acute on chronic combined systolic (congestive) and diastolic (congestive) heart failure; E87.1 Hypo-osmolality and hyponatremia; N17.9 Acute kidney failure, unspecified; J90 Pleural effusion, not elsewhere classified; I95.9 Hypotension, unspecified; L27.0 Generalized skin eruption due to drugs and medicaments taken internally; I42.0 Dilated cardiomyopathy; M06.9 Rheumatoid arthritis, unspecified; E87.5 Hyperkalemia; E05.90 Thyrotoxicosis, unspecified without thyrotoxic crisis or storm; I25.10 Atherosclerotic heart disease of native coronary artery without angina pectoris; I44.7 Left bundle-branch block, unspecified; E78.00 Pure hypercholesterolemia, unspecified; D63.8 Anemia in other chronic diseases classified elsewhere; E66.01 Morbid (severe) obesity due to excess calories; E11.51 Type 2 diabetes mellitus with diabetic peripheral angiopathy without gangrene; I42.8 Other cardiomyopathies; G47.33 Obstructive sleep apnea (adult) (pediatric); Z79.899 Other long term (current) drug therapy; Z79.82 Long term (current) use of aspirin; Z90.710 Acquired absence of both cervix and uterus; Z98.890 Other specified postprocedural states; Z98.42 Cataract extraction status, left eye; Z68.35 Body mass index [BMI] 35.0-35.9, adult; Z98.41 Cataract extraction status, right eye; Z95.820 Peripheral vascular angioplasty status with implants and grafts; Z88.8 Allergy status to other drugs, medicaments and biological substances; Z79.4 Long term (current) use of insulin; Z20.822 Contact with and (suspected) exposure to COVID-19
CPT/HCPCS: 32555; 33225; 33249; 36005; 36415; 36416; 36600; 71045; 71275; 74018; 75820; 76770; 80048; 80053; 82553; 82805; 83735; 83880; 84100; 84145; 84439; 84443; 84481; 84484; 85025; 85027; 85379; 85610; 85730; 86850; 86900; 86901; 93005; 93010; 93306; 93970; 94660; 94760; 96374; 96376; 97139; C1763; C1769; C1777; C1898; C1900; J0610; J0690; J1200; J1580; J1644; J1815; J1940; J2001; J2405; J2550; J2704; J3010; J3370; J7050; J7999; P9047; Q0162; Q9967; U0002

== ENCOUNTER 2022-07-02 10:36 | Outpatient (CLI) | payer MEDICARE | END 2022-07-02 10:37 | disposition home or self-care (01) | LOC: CSHWCC 10:36 | PROVIDERS: ATTEND Nurse Practitioner Family | DX: L89.152 Pressure ulcer of sacral region, stage 2 (principal); R60.0 Localized edema ==

== ENCOUNTER 2022-07-10 14:47 | Outpatient (CLI) | payer MEDICARE | END 2022-07-10 14:48 | disposition home or self-care (01) | LOC: CSHWCC 14:47 | PROVIDERS: ATTEND Nurse Practitioner Family | DX: L89.152 Pressure ulcer of sacral region, stage 2 (principal); R60.0 Localized edema ==

== ENCOUNTER 2022-07-29 11:15 | Outpatient (CLI) | payer MEDICARE | END 2022-07-29 11:16 | disposition home or self-care (01) | LOC: CSHWCC 11:15 | PROVIDERS: ATTEND Nurse Practitioner Family | DX: L89.152 Pressure ulcer of sacral region, stage 2 (principal) | CPT/HCPCS: 99213; G0463 ==

== ENCOUNTER 2022-08-07 13:51 | Emergency (ER) | payer MEDICARE ==
[2022-08-07 15:19] LABS: #Eosinphils 0.4 10x3/uL (0.0-0.5); #Monocytes 0.4 10x3/uL (0.0-1.1); #Neutrophils 6.7 10x3/uL (1.5-8.4); %Basophils 0.5 % (0.0-2.0); %Eosinophils 4.4 % (0.0-6.0); %Lymphocytes 13.3 % (18.0-47.0); %Monocytes 4.9 % (0.0-10.0); %Neutrophils 76.6 % (40.0-75.0); Mean Corpuscular HGB CONC 32.5 g/dL (32.0-36.0); Mean Corpuscular Hemoglobin 28.7 pg (27.0-33.0); Mean Corpuscular Volume 88.3 fl (81.6-98.3); Mean Platelet Volume 8.7 fl (7.4-10.4); Platelet Count 208 10x3/uL (150-450); RBC Distribution Width 13.7 % (11.5-14.5); Red Blood Cell (RBC) Count 3.83 10x6/uL (3.90-5.03); White Blood Cell (WBC) Count 8.7 10x3/uL (3.5-10.5)
[2022-08-07 15:44] LABS: ALT (SGPT) 19 U/L (8-55); AST (SGOT) 36 U/L (5-34); Albumin 3.3 g/dL (3.4-4.8); Alkaline Phosphatase 70 U/L (40-110); Anion Gap 14 mmol/L (10-20); BUN (Urea Nitrogen) 44 mg/dL (9.8-20.1); Bilirubin, Total 0.3 mg/dL (0.2-1.2); Calc. Creatinine Clearance 0 mL/min (70-130); Calcium 9.5 mg/dL (7.8-10.44); Carbon Dioxide 20 mmol/L (23-31); Chloride 106 mmol/L (98-107); Estimated GFR 52; Globulin 3.6 g/dL (2.4-3.5); Glucose 64 mg/dL (83-110); Potassium 4.5 mmol/L (3.5-5.1); Protein, Total 6.9 g/dL (5.8-8.1); Sodium 135 mmol/L (136-145)
[2022-08-07 16:05] LABS: CKMB 1.6 ng/mL (0-6.6)
[2022-08-07 17:54] LABS: Bilirubin Neg (Negative); Blood, Urine Negative (Negative); Clarity Clear (Clear); Glucose, Urine (Dipstick) Normal (Negative); Ketone, Urine Negative (Negative); Leukocyte Negative (Negative); Nitrite Negative (Negative); Protein, Urine (Dipstick) Negative (Neg-Trace); Specific Gravity, Urine 1.005 (1.005-1.030); Urobilinogen Normal mg/dL (Less than 2)
[2022-08-07 19:04] LABS: Troponin I 0.028 ng/mL (< 0.028)
== END 2022-08-07 20:55 | disposition home or self-care (01) ==
LOC: CSHERS 13:51
DX: E11.649 Type 2 diabetes mellitus with hypoglycemia without coma (principal); Z79.4 Long term (current) use of insulin; I11.0 Hypertensive heart disease with heart failure; L89.154 Pressure ulcer of sacral region, stage 4; I50.9 Heart failure, unspecified; I25.10 Atherosclerotic heart disease of native coronary artery without angina pectoris; E78.5 Hyperlipidemia, unspecified
CPT/HCPCS: 36416; 80053; 81003; 82553; 84484; 85025; 93005

== ENCOUNTER 2022-08-13 14:42 | Outpatient (CLI) | payer MEDICARE | END 2022-08-13 14:43 | disposition home or self-care (01) | LOC: CSHWCC 14:42 | PROVIDERS: ATTEND Nurse Practitioner Family | DX: L89.153 Pressure ulcer of sacral region, stage 3 (principal) ==

== ENCOUNTER 2022-08-18 15:01 | Emergency (ER) | payer MEDICARE ==
[2022-08-18 16:01] LABS: #Basophils 0.1 10x3/uL (0.0-0.2); #Eosinphils 0.4 10x3/uL (0.0-0.5); #Monocytes 0.5 10x3/uL (0.0-1.1); #Neutrophils 5.6 10x3/uL (1.5-8.4); %Basophils 0.6 % (0.0-2.0); %Eosinophils 4.6 % (0.0-6.0); %Lymphocytes 17.3 % (18.0-47.0); %Monocytes 6.4 % (0.0-10.0); %Neutrophils 70.7 % (40.0-75.0); Hemoglobin 10.9 g/dL (12.0-15.5); Mean Corpuscular Hemoglobin 28.4 pg (27.0-33.0); Mean Corpuscular Volume 88.8 fl (81.6-98.3); Mean Platelet Volume 8.9 fl (7.4-10.4); Platelet Count 215 10x3/uL (150-450); RBC Distribution Width 14.2 % (11.5-14.5); Red Blood Cell (RBC) Count 3.84 10x6/uL (3.90-5.03); White Blood Cell (WBC) Count 7.9 10x3/uL (3.5-10.5)
[2022-08-18] MEDS ORDERED: Metoclopramide HCl 10 MG/2 ML VIAL ONE (16:14)
[2022-08-18] MEDS ORDERED: diphenhydrAMINE 50 MG/ML VIAL ONE (16:15)
[2022-08-18 16:20] LABS: ALT (SGPT) 18 U/L (8-55); AST (SGOT) 31 U/L (5-34); Albumin 3.5 g/dL (3.4-4.8); Alkaline Phosphatase 74 U/L (40-110); Anion Gap 16 mmol/L (10-20); BUN (Urea Nitrogen) 46 mg/dL (9.8-20.1); Bilirubin, Total 0.4 mg/dL (0.2-1.2); Calc. Creatinine Clearance 0 mL/min (70-130); Calcium 9.9 mg/dL (7.8-10.44); Carbon Dioxide 20 mmol/L (23-31); Chloride 104 mmol/L (98-107); Estimated GFR 40; Globulin 3.8 g/dL (2.4-3.5); Glucose 176 mg/dL (83-110); Potassium 4.6 mmol/L (3.5-5.1); Protein, Total 7.3 g/dL (5.8-8.1); Sodium 135 mmol/L (136-145)
== END 2022-08-18 17:04 | disposition short-term general hospital (02) ==
LOC: CSHERS 15:01
DX: S06.5XAA Traumatic subdural hemorrhage with loss of consciousness status unknown, initial encounter (principal); E04.2 Nontoxic multinodular goiter; W19.XXXA Unspecified fall, initial encounter
CPT/HCPCS: 36416; 70450; 72125; 80053; 85025; 93005; 96365; 96375; J1200; J2765

== ENCOUNTER 2022-08-27 13:40 | Outpatient (CLI) | payer MEDICARE | END 2022-08-27 13:41 | disposition home or self-care (01) | LOC: EDBD → CSHWCC 13:40 | PROVIDERS: ATTEND Nurse Practitioner Family | DX: S61.402D Unspecified open wound of left hand, subsequent encounter (principal); L89.153 Pressure ulcer of sacral region, stage 3 | CPT/HCPCS: 97139; G0463; 99213 ==

== ENCOUNTER 2022-09-03 14:56 | Outpatient (CLI) | payer MEDICARE | END 2022-09-03 14:57 | disposition home or self-care (01) | LOC: CSHWCC 14:56 → EDBD 14:56 → CSHWCC 14:57 | PROVIDERS: ATTEND Nurse Practitioner Family | DX: S61.402D Unspecified open wound of left hand, subsequent encounter (principal); L89.153 Pressure ulcer of sacral region, stage 3 | CPT/HCPCS: 97605 ==

== ENCOUNTER 2022-09-17 14:27 | Outpatient (CLI) | payer MEDICARE | END 2022-09-17 14:28 | disposition home or self-care (01) | LOC: CSHWCC 14:27 | PROVIDERS: ATTEND Nurse Practitioner Family | DX: S61.402D Unspecified open wound of left hand, subsequent encounter (principal); L89.153 Pressure ulcer of sacral region, stage 3 | CPT/HCPCS: 97605 ==

== ENCOUNTER 2022-10-15 13:12 | Outpatient (CLI) | payer MEDICARE | END 2022-10-15 13:13 | disposition home or self-care (01) | LOC: CSHWCC 13:12 | PROVIDERS: ATTEND Nurse Practitioner Family | DX: S61.402D Unspecified open wound of left hand, subsequent encounter (principal); S51.802D Unspecified open wound of left forearm, subsequent encounter; L89.153 Pressure ulcer of sacral region, stage 3 ==